=== PATIENT | male | born 1965 | race Caucasian/White ===

== ENCOUNTER 2023-05-01 11:23 | Emergency (ER) | payer MEDICAID ==
[~2023-05-01] VITALS: Ht 182.9 cm; Wt 87.0 kg
[2023-05-01 11:26] VITALS: O2SAT 98
[2023-05-01] MEDS ORDERED: LORAZEPAM 2MG/ML CPJ IM ONE (12:15)
[2023-05-01] MEDS ORDERED: HALOPERIDOL LACTATE 5MG/ML VIAL IM ONE (12:15)
[2023-05-01] MEDS ORDERED: DIPHENHYDRAMINE 50MG/ML VIAL IM ONE (12:15)
[2023-05-01] MEDS ORDERED: LORAZEPAM 4MG/ML VIAL IM SCH (12:45)
[2023-05-01] MEDS ORDERED: LEVETIRACETAM 500MG PREMIX 100 ML IV ONE (14:15)
[2023-05-01 15:00] LABS: HEMATOCRIT. 43.3 % (42.0-52.0); HEMOGLOBIN. 14.6 g/dL (14.0-18.0); MEAN CORPUSCULAR HEMOGLOBIN 30.3 pg (28.0-32.0); MEAN CORPUSCULAR HGB CONC 33.8 g/dL (31.0-37.0); MEAN CORPUSCULAR VOLUME 89.8 fL (80.0-94.0); MEAN PLATELET VOLUME 8.8 fl (7.4-10.4); PLATELET 261 x1000/uL (130-400); RED BLOOD CELL COUNT 4.82 mill/uL (4.7-6.1); RED CELL DISTRIBUTION WIDTH 12.6 % (11.6-14.6); WHITE BLOOD COUNT 13.6 x1000/uL (4.5-11.0)
[2023-05-01 15:01] LABS: DIFFERENTIAL COMMENT 1
[2023-05-01 15:02] LABS: ALANINE AMINOTRANSFERASE 36 IU/L (10-49); ASPARTATE AMINOTRANSFERASE 25 IU/L (<34); BILIRUBIN TOTAL 0.6 mg/dL (0.1-1.0); CALCIUM 8.9 mg/dL (8.7-10.4); CARBON DIOXIDE 27 mEq/L (21-32); CHLORIDE 101 mEq/L (98-107); CREATININE 0.7 mg/dL (0.6-1.3); GLUCOSE 90 mg/dL (70-105); POTASSIUM 4.2 mEq/L (3.5-5.1); PROTEIN TOTAL 6.9 g/dL (6.0-8.3); SODIUM 136 mEq/L (136-145); UREA NITROGEN BLOOD 11 mg/dL (9-23)
[2023-05-01 15:10] LABS: CARBAMAZEPINE < 0.4 ug/mL (4-12); ETHANOL BLOOD < 10 mg/dL (<10); PHENOBARBITAL < 3.0 ug/mL (15.0-40.0); PHENYTOIN < 2.0 ug/mL (10-20); VALPROIC ACID < 3.0 ug/mL (50-100)
[2023-05-01 15:35] LABS: PLATELET ESTIMATE NORMAL
[2023-05-01 18:47] VITALS: BP 136/76; PULSE 85; RESP 16; TEMP 98.9
== END 2023-05-01 18:49 | disposition home or self-care (01) ==
LOC: ER 11:23
DX: R56.9 Unspecified convulsions (principal); F20.9 Schizophrenia, unspecified
CPT/HCPCS: 80053; 80320; 80156; 80185; 80184; 80165; 85025; 36415; 96365; 96372; 99291; J1953; J1200; J1630; J2060; Z7610 ×3; G0480